=== PATIENT | female | born 1970 | race African-American/Black ===

== ENCOUNTER 2021-05-28 10:49 | Day surgery (SDC) | payer OTHER ==
[2021-05-27 14:35] VITALS: BMI 25.7
[2021-05-28] MEDS ORDERED: Midazolam HCl 2 mg/2 ml Vial ONE (11:21)
[2021-05-28] MEDS ORDERED: Fentanyl 100 MCG/2 ML VIAL ONE ×2 (11:21→11:58)
[2021-05-28] MEDS ORDERED: Bupivacaine HCl 0.5%/Epinephrine 1:200,000/PF 30 ml Vial ONE (11:35)
[2021-05-28] MEDS ORDERED: Bupivacaine 0.25% HCL 30 ML VIAL ONE (11:42)
[2021-05-28] MEDS ORDERED: Lidocaine 1% (PF) 30 ML VIAL ONE (11:42)
[2021-05-28 11:59] LABS: Anion Gap 16 mmol/L (10-20); BUN (Urea Nitrogen) 8 mg/dL (9.8-20.1); Calc. Creatinine Clearance 88 mL/min (70-130); Calcium 9.8 mg/dL (7.8-10.44); Carbon Dioxide 22 mmol/L (22-29); Chloride 104 mmol/L (98-107); Glucose 95 mg/dL (70-105); Potassium 3.8 mmol/L (3.5-5.1); Sodium 138 mmol/L (136-145)
[2021-05-28] MEDS ORDERED: PROPOFOL 200 MG/20 ML VIAL ONE (12:19)
[2021-05-28] MEDS ORDERED: Ondansetron PF 4 MG/2 ML Vial ONE (12:19)
[2021-05-28] MEDS ORDERED: Lidocaine 1% PF 5 ML VIAL ONE (12:19)
[2021-05-28] MEDS ORDERED: ePHEDrine Sulfate 50 MG/10 ML VIAL ONE (12:19)
[2021-05-28] MEDS ORDERED: Dexamethasone 20 MG/5 ML VIAL ONE (12:19)
[2021-05-28] MEDS ORDERED: Ketorolac Tromethamine 30 MG/ML VIAL ONE (12:19)
== END 2021-05-28 16:46 | disposition home or self-care (01) ==
LOC: SDC 10:49
PROVIDERS: ATTEND Surgery Surgery of the Hand
PROC: 3E0T3BZ Introduction of Anesthetic Agent into Peripheral Nerves and Plexi, Percutaneous Approach (ICD-10-PCS; principal; 2021-05-28)
PROC: 0RQT0ZZ Repair Left Carpometacarpal Joint, Open Approach (ICD-10-PCS; principal; 2021-05-28)
DX: M18.12 Unilateral primary osteoarthritis of first carpometacarpal joint, left hand (principal); G89.18 Other acute postprocedural pain; I10 Essential (primary) hypertension; Z79.82 Long term (current) use of aspirin; Z79.899 Other long term (current) drug therapy
CPT/HCPCS: 76000; 80048; 88307; 88311; 93005; 93010; C1713; J0690; J1100; J1885; J2001; J2250; J2405; J2704; J3010; S0020

== ENCOUNTER 2021-11-25 09:54 | Outpatient (CLI) | payer OTHER | END 2021-11-25 09:55 | disposition home or self-care (01) | LOC: BICMAMMO 09:54 | PROVIDERS: ATTEND Family Medicine | DX: Z12.31 Encounter for screening mammogram for malignant neoplasm of breast (principal); N63.10 Unspecified lump in the right breast, unspecified quadrant | CPT/HCPCS: 77063; 77067 ==

== ENCOUNTER 2021-12-03 15:13 | Outpatient (CLI) | payer OTHER | END 2021-12-03 15:14 | disposition home or self-care (01) | LOC: BICULT 15:13 | PROVIDERS: ATTEND Family Medicine | DX: R92.2 Inconclusive mammogram (principal) ==

== ENCOUNTER 2022-03-04 09:48 | Outpatient (CLI) | payer OTHER ==
[2022-03-04 11:00] LABS: #Eosinphils 0.1 10x3/uL (0.0-0.5); #Monocytes 0.4 10x3/uL (0.0-1.1); #Neutrophils 4.2 10x3/uL (1.5-8.4); %Basophils 0.3 % (0.0-2.0); %Eosinophils 1.1 % (0.0-6.0); %Lymphocytes 27.9 % (18.0-47.0); %Monocytes 6.6 % (0.0-10.0); %Neutrophils 63.8 % (40.0-75.0); Hemoglobin 14.9 g/dL (12.0-15.5); Mean Corpuscular HGB CONC 33.9 g/dL (32.0-36.0); Mean Corpuscular Hemoglobin 29.3 pg (27.0-33.0); Mean Corpuscular Volume 86.4 fl (81.6-98.3); Mean Platelet Volume 10.3 fl (7.4-10.4); Platelet Count 242 10x3/uL (150-450); RBC Distribution Width 13.9 % (11.5-14.5); Red Blood Cell (RBC) Count 5.08 10x6/uL (3.90-5.03); White Blood Cell (WBC) Count 6.6 10x3/uL (3.5-10.5)
[2022-03-04 11:11] LABS: Prothrombin Time 10.5 sec (9.5-12.1)
[2022-03-04 11:27] LABS: Anion Gap 15 mmol/L (10-20); BUN (Urea Nitrogen) 10 mg/dL (9.8-20.1); Calc. Creatinine Clearance 0 mL/min (70-130); Calcium 10.2 mg/dL (7.8-10.44); Carbon Dioxide 28 mmol/L (22-29); Chloride 97 mmol/L (98-107); Glucose 93 mg/dL (70-105); Sodium 136 mmol/L (136-145)
[2022-03-04 18:04] LABS: SARS-CoV-2 PCR by NAA Not Detected (NotDetected)
== END 2022-03-04 09:49 | disposition home or self-care (01) ==
LOC: LABBT 09:48
PROVIDERS: ATTEND Orthopaedic Surgery
DX: Z01.818 Encounter for other preprocedural examination (principal); M16.12 Unilateral primary osteoarthritis, left hip; Z20.822 Contact with and (suspected) exposure to COVID-19
CPT/HCPCS: 80048; 85025; 85610; 87081; 93005; 93010; U0003; U0005

== ENCOUNTER 2022-10-29 05:59 | Observation (INO) | payer OTHER ==
[2022-10-28 10:26] VITALS: BMI 24.3
[2022-10-29] MEDS ORDERED: fentaNYL PF 100 MCG/2 ML SYRINGE ONE (06:27)
[2022-10-29] MEDS ORDERED: Propofol 1,000 MG/100 ML VIAL IV ONE (06:28)
[2022-10-29] MEDS ORDERED: Midazolam HCl 2 mg/2 ml Vial ONE ×2 (06:42→06:51)
[2022-10-29] MEDS ORDERED: Lidocaine 1% (PF) 30 ML VIAL ONE (06:42)
[2022-10-29] MEDS ORDERED: Bupivacaine PF 0.5% 30 ML VIAL ONE ×2 (06:42→07:03)
[2022-10-29] MEDS ORDERED: FENTANYL 50 MCG/ML 1 ML VIAL ONE ×2 (06:42→11:19)
[2022-10-29] MEDS ORDERED: Lidocaine 2% 6 ML SYR ONE (06:47)
[2022-10-29] MEDS ORDERED: HYDROcodone/Acetaminophen 10/325 mg Tablet PO PRN (06:54)
[2022-10-29] MEDS ORDERED: Promethazine HCl 25 MG/ML VIAL IM PRN ×2 (06:54→09:05)
[2022-10-29] MEDS ORDERED: Zolpidem Tartrate 5 MG TAB PO PRN (06:54)
[2022-10-29] MEDS ORDERED: Ondansetron PF 4 MG/2 ML Vial IVP PRN (06:54)
[2022-10-29] MEDS ORDERED: diphenhydrAMINE 25 MG CAP PO PRN (06:54)
[2022-10-29] MEDS ORDERED: FENTANYL 50 MCG/ML 1 ML VIAL SLOW IVP PRN (06:54)
[2022-10-29] MEDS ORDERED: Vancomycin 1 GM/200 ML (FROZEN) BAG ONE (07:02)
[2022-10-29] MEDS ORDERED: Sodium Chloride 0.9% 100 ML ONE ×2 (07:02→07:14)
[2022-10-29] MEDS ORDERED: Tranexamic Acid 1,000 MG/10 ML VIAL ONE (07:02)
[2022-10-29] MEDS ORDERED: CEFAZOLIN 2 GM VIAL ONE (07:14)
[2022-10-29] MEDS ORDERED: Phenylephrine 10 MG/ML VIAL ONE (07:30)
[2022-10-29] MEDS ORDERED: PROPOFOL 200 MG/20 ML VIAL ONE ×2 (07:30→07:50)
[2022-10-29 07:32] LABS: SARS-CoV-2 NAA Rapid Test Not Detected (NotDetected)
[2022-10-29] MEDS ORDERED: HYDROmorphone 2 MG/ML VIAL SLOW IVP PRN (09:05)
[2022-10-29] MEDS ORDERED: Ondansetron HCl/PF 4 MG/2 ML Vial IVP PRN (09:05)
[2022-10-29] MEDS ORDERED: Promethazine HCl 25 MG/ML VIAL IVPB PRN (09:05)
[2022-10-29] MEDS: Metoprolol Tartrate 25 MG TAB PO SCH (12:36)
[2022-10-29] MEDS: Lisinopril/Hydrochlorothiazide 20 mg/12.5 mg Tablet PO SCH (12:36)
[2022-10-29] MEDS: Aspirin 81 mg Enteric Coated Tablet PO SCH ×2 (12:36→21:35)
[2022-10-29] MEDS: HYDROcodone/Acetaminophen 10/325 mg Tablet PO PRN ×2 (14:55→23:03)
[2022-10-29] MEDS: Sodium Chloride 0.9% 1,000 ML IV SCH ×2 (14:56→18:23)
[2022-10-29] MEDS: CEFAZOLIN 2 GM in Sodium Chloride 0.9% 100 ML IVPB SCH ×2 (14:57→22:04)
[2022-10-29] MEDS ORDERED: FLU VACC QS2022-23(6MOS UP)/PF 60 MCG/0.5 ML SYRINGE IM ONE (15:15)
[2022-10-29] MEDS: Atorvastatin Calcium 10 MG TAB PO SCH (21:35)
[2022-10-29] MEDS: FLUoxetine HCl 20 MG CAP PO SCH (21:35)
[2022-10-30] MEDS: Sodium Chloride 0.9% 1,000 ML IV SCH ×2 (02:40→19:31)
[2022-10-30 05:18] LABS: Hemoglobin 11.4 g/dL (12.0-16.0); Mean Corpuscular HGB CONC 32.8 g/dL (32.0-36.0); Mean Corpuscular Hemoglobin 30.6 pg (27.0-31.0); Mean Corpuscular Volume 93.1 fl (78.0-98.0); Mean Platelet Volume 8.5 fL (7.4-10.4); Platelet Count 155 10x3/uL (130-400); RBC Distribution Width 12.7 % (11.5-14.5); Red Blood Cell (RBC) Count 3.73 mill/uL (4.20-5.40)
[2022-10-30] MEDS: Metoprolol Tartrate 25 MG TAB PO SCH (09:32)
[2022-10-30] MEDS: Lisinopril/Hydrochlorothiazide 20 mg/12.5 mg Tablet PO SCH (09:32)
[2022-10-30] MEDS: Senokot S 8.6-50 MG TAB PO SCH ×2 (09:33→20:35)
[2022-10-30] MEDS: Aspirin 81 mg Enteric Coated Tablet PO SCH ×2 (09:33→20:31)
[2022-10-30] MEDS: Ferrous Gluconate 324 MG TAB PO SCH ×2 (09:33→18:01)
[2022-10-30] MEDS: Multivitamin W/ Minerals 1 TAB PO SCH (09:33)
[2022-10-30] MEDS: Ketorolac Tromethamine 30 MG/ML VIAL IVP PRN ×2 (11:23→18:02)
[2022-10-30] MEDS: Acetaminophen 325 MG TAB PO PRN ×2 (11:25→18:02)
[2022-10-30] MEDS: Atorvastatin Calcium 10 MG TAB PO SCH (20:31)
[2022-10-30] MEDS: FLUoxetine HCl 20 MG CAP PO SCH (20:34)
[2022-10-31] MEDS: Sodium Chloride 0.9% 1,000 ML IV SCH ×3 (00:45→21:31)
[2022-10-31] MEDS: Ketorolac Tromethamine 30 MG/ML VIAL IVP PRN (03:23)
[2022-10-31 06:07] LABS: Hemoglobin 10.5 g/dL (12.0-16.0); Mean Corpuscular Hemoglobin 30.5 pg (27.0-31.0); Mean Corpuscular Volume 92.5 fl (78.0-98.0); Mean Platelet Volume 8.5 fL (7.4-10.4); Platelet Count 138 10x3/uL (130-400); RBC Distribution Width 12.7 % (11.5-14.5); Red Blood Cell (RBC) Count 3.43 mill/uL (4.20-5.40); White Blood Cell (WBC) Count 8.7 10x3/uL (4.8-10.8)
[2022-10-31] MEDS: Metoprolol Tartrate 25 MG TAB PO SCH (08:47)
[2022-10-31] MEDS: Senokot S 8.6-50 MG TAB PO SCH ×2 (08:47→21:32)
[2022-10-31] MEDS: Aspirin 81 mg Enteric Coated Tablet PO SCH ×2 (08:47→21:32)
[2022-10-31] MEDS: Multivitamin W/ Minerals 1 TAB PO SCH (08:48)
[2022-10-31] MEDS: Acetaminophen 325 MG TAB PO PRN (08:48)
[2022-10-31] MEDS: Lisinopril/Hydrochlorothiazide 20 mg/12.5 mg Tablet PO SCH (08:49)
[2022-10-31] MEDS: Ferrous Gluconate 324 MG TAB PO SCH ×2 (08:49→17:00)
[2022-10-31] MEDS: FLUoxetine HCl 20 MG CAP PO SCH (21:32)
[2022-10-31] MEDS: Atorvastatin Calcium 10 MG TAB PO SCH (21:32)
[2022-11-01] MEDS: Sodium Chloride 0.9% 1,000 ML IV SCH (05:08)
[2022-11-01 05:38] LABS: Hemoglobin 10.2 g/dL (12.0-16.0); Mean Corpuscular HGB CONC 32.9 g/dL (32.0-36.0); Mean Corpuscular Hemoglobin 30.6 pg (27.0-31.0); Mean Platelet Volume 8.2 fL (7.4-10.4); Platelet Count 146 10x3/uL (130-400); RBC Distribution Width 12.7 % (11.5-14.5); Red Blood Cell (RBC) Count 3.34 mill/uL (4.20-5.40); White Blood Cell (WBC) Count 6.6 10x3/uL (4.8-10.8)
[2022-11-01] MEDS: HYDROcodone/Acetaminophen 10/325 mg Tablet PO PRN (08:09)
[2022-11-01] MEDS: Ferrous Gluconate 324 MG TAB PO SCH (08:10)
[2022-11-01] MEDS: Multivitamin W/ Minerals 1 TAB PO SCH (08:10)
[2022-11-01] MEDS: Aspirin 81 mg Enteric Coated Tablet PO SCH (08:10)
[2022-11-01] MEDS: Senokot S 8.6-50 MG TAB PO SCH (08:10)
[2022-11-01] MEDS: Lisinopril/Hydrochlorothiazide 20 mg/12.5 mg Tablet PO SCH (08:11)
[2022-11-01] MEDS: Metoprolol Tartrate 25 MG TAB PO SCH (08:11)
[2022-11-01 08:45] VITALS: TEMP 98.1
[2022-11-01 12:41] VITALS: BP 92/61
== END 2022-11-01 12:45 | disposition home or self-care (01) ==
LOC: SDC 05:59 → SURG A 12:06
PROVIDERS: ADMIT Orthopaedic Surgery; ATTEND Orthopaedic Surgery
PROC: 0SR904A Replacement of Right Hip Joint with Ceramic on Polyethylene Synthetic Substitute, Uncemented, Open Approach (ICD-10-PCS; principal; 2022-10-29)
DX: M16.11 Unilateral primary osteoarthritis, right hip (principal); I10 Essential (primary) hypertension; E78.00 Pure hypercholesterolemia, unspecified; Z79.899 Other long term (current) drug therapy; Z96.642 Presence of left artificial hip joint; Z20.822 Contact with and (suspected) exposure to COVID-19
CPT/HCPCS: 36415; 85027; 96365; 96375; 96376; C1776; G0378; J1885; J2001; J2250; J2370; J2704; J3010; J3370-JW; J3490; J7050; S0020; U0002